=== PATIENT | female | born 1995 | race Caucasian/White ===

== ENCOUNTER → 2017-08-26 | Outpatient (CLI) | payer OTHER ==
[~2017-08-26] MED LIST: Flomax0.4 MG PO; IBUP800 PO; Percocet 5-3251 EACH PO; Zofran8 MG PO
[2017-08-27 11:51] LABS: Source CERVICAL
== END ==
LOC: LAB 16:30
PROVIDERS: Registered Nurse Community Health
DX: Z12.4 Encounter for screening for malignant neoplasm of cervix (principal)
CPT/HCPCS: G0123

== ENCOUNTER → 2018-10-15 | Outpatient (CLI) | payer OTHER ==
[2018-10-15 09:34] LABS: Alanine Aminotransfer (ALT/SGP 10 U/L (12-78); Albumin, Blood 2.6 g/dL (3.4-5.0); Albumin/Globulin Ratio 0.6 (0.8-1.8); Alk Phos 116 U/L (40-126); Anion Gap 14 mmol/L (6-16); Aspartate Aminotrans (AST/SGOT 10 U/L (12-37); Bilirubin, Total 0.3 mg/dL (0.1-1.0); Blood Urea Nitrogen 4 mg/dL (8-24); Bun/Creatinine Ratio 9.1 (12.0-20.0); CO2, Blood 22 mmol/L (21-32); Calcium, Blood 8.3 mg/dL (8.5-10.1); Chloride, Blood 101 mmol/L (98-108); Creatinine, Blood 0.44 mg/dL (0.40-1.00); Globulin, Blood 4.7 g/dL (2.2-4.0); Glomerular Filtration Rate >60 (60-); Glucose, Blood 92 mg/dL (70-99); Potassium, Blood 3.9 mmol/L (3.5-5.5); Sodium, Blood 137 mmol/L (136-145); Total Protein, Blood 7.3 g/dL (6.4-8.2)
== END | disposition home or self-care (01) ==
LOC: LAB SHORT 09:16 → LAB EV 09:16
PROVIDERS: Physician Assistant
DX: R10.9 Unspecified abdominal pain (principal)
CPT/HCPCS: 80053

== ENCOUNTER → 2018-12-01 | Outpatient (CLI) | payer OTHER | LOC: LAB SHORT 11:30 → LAB 11:30 | DX: Z34.93 Encounter for supervision of normal pregnancy, unspecified, third trimester (principal) | CPT/HCPCS: 87081; 87653 ==

== ENCOUNTER 2018-12-22 05:47 | Inpatient (IN) | payer OTHER ==
[~2018-12-22] VITALS: Ht 149.9 cm; Wt 0.1 kg
[2018-12-22] MEDS ORDERED: SERT50 PO (06:24)
[2018-12-22 06:36] LABS: BASOPHILS ABSOLUTE AUTO 0.03 K/mm3 (0.00-0.23); BASOPHILS PERCENT AUTO 0 % (0-2); EOSINOPHILS ABSOLUTE AUTO 0.03 K/mm3 (0.00-0.68); EOSINOPHILS PERCENT AUTO 0 % (0-6); Hematocrit 31.6 % (33.0-51.0); Hemoglobin 9.6 g/dL (11.5-16.0); IMMATURE GRAN ABSOLUTE AUTO 0.29 K/mm3 (0.00-0.10); IMMATURE GRAN PERCENT AUTO 2 % (0-1); LYMPHOCYTES ABSOLUTE AUTO 1.77 K/mm3 (0.84-5.20); LYMPHOCYTES PERCENT AUTO 10 % (21-46); MONOCYTES ABSOLUTE AUTO 1.08 K/mm3 (0.16-1.47); MONOCYTES PERCENT AUTO 6 % (4-13); Mean Corpuscular HGB 25.3 pg (26.0-34.0); Mean Corpuscular HGB Conc 30.4 g/dL (31.5-36.5); Mean Corpuscular Volume 83 fL (80-100); Mean Platelet Volume 9.9 fL (9.1-12.4); NEUTROPHILS ABSOLUTE AUTO 13.97 K/mm3 (1.96-9.15); NEUTROPHILS PERCENT AUTO 81 % (41-73); Platelet Count 284 K/mm3 (150-400); RDW Coefficient Variation 17.2 % (11.7-14.2); RDW Standard Deviation 50.9 fL (35.1-46.3); White Blood Cell Count 17.17 K/mm3 (4.00-11.30)
--- NOTE | 2018-12-22 10:59 | NUR ---
PERMISSION TO PROVIDE CARE PATIENT GAVE STUDENT PERMISSION TO PROVIDE CARE ON 12/22/2018.
[2018-12-23 05:58] LABS: BASOPHILS ABSOLUTE AUTO 0.03 K/mm3 (0.00-0.23); BASOPHILS PERCENT AUTO 0 % (0-2); EOSINOPHILS ABSOLUTE AUTO 0.11 K/mm3 (0.00-0.68); EOSINOPHILS PERCENT AUTO 1 % (0-6); Hematocrit 25.5 % (33.0-51.0); Hemoglobin 7.6 g/dL (11.5-16.0); IMMATURE GRAN ABSOLUTE AUTO 0.17 K/mm3 (0.00-0.10); IMMATURE GRAN PERCENT AUTO 1 % (0-1); LYMPHOCYTES ABSOLUTE AUTO 2.71 K/mm3 (0.84-5.20); LYMPHOCYTES PERCENT AUTO 16 % (21-46); MONOCYTES ABSOLUTE AUTO 1.47 K/mm3 (0.16-1.47); MONOCYTES PERCENT AUTO 8 % (4-13); Mean Corpuscular HGB 25.5 pg (26.0-34.0); Mean Corpuscular HGB Conc 29.8 g/dL (31.5-36.5); NEUTROPHILS ABSOLUTE AUTO 13.03 K/mm3 (1.96-9.15); NEUTROPHILS PERCENT AUTO 74 % (41-73); Platelet Count 253 K/mm3 (150-400); RDW Coefficient Variation 17.4 % (11.7-14.2); Red Blood Cell Count 2.98 M/mm3 (3.80-5.20); White Blood Cell Count 17.52 K/mm3 (4.00-11.30)
[2018-12-23 05:59] LABS: Mean Corpuscular Volume 86 fL (80-100)
[2018-12-23] MEDS ORDERED: Verotin-Gr Cap1 EACH PO (07:18)
[2018-12-23] MEDS ORDERED: IBUP600 PO (07:18)
--- NOTE | 2018-12-23 09:45 | NUR ---
D/C INSTRUCTIONS DISCUSSED AND SIGNED. PT ANXIOUS TO GO HOME TO [employer]PER[employer]INE OTHER CHILD. NO QUESTIONS OR CONCERNS. EXPERIENCED PARENTS RASHMI NB CARE WEL. OBSERVED BF. GOOD LATCH. WILL SEE STACIE IN [facility] TOMORROW FOR MORE BF ASSISTANCE. PT DOESN'T WANT TO WAIT TO SEE HER LATER TODAY. DISCUSSED PP DEPRESSION, PT PLANS TO CONTINUE [facility] AND WILL SEE Nadya BUSTOS CNM AROUND 2 WEEKS AND KNOWS TO CALL HER OFFICE OR [facility] IF NEEDS TO BE SEEN AT ANY TIME FOR PPDEPRESSION.
== END 2018-12-23 09:45 | disposition home or self-care (01) | DRG 807 ==
LOC: OBS 05:47 → BC 05:47 → OBS 06:13 → BC 06:14
PROVIDERS: ADMIT Registered Nurse Community Health
PROC: 10E0XZZ Delivery of Products of Conception, External Approach (ICD-10-PCS; principal; 2018-12-22)
PROC: 10907ZC Drainage of Amniotic Fluid, Therapeutic from Products of Conception, Via Natural or Artificial Opening (ICD-10-PCS; 2018-12-22)
PROC: 6A550ZT Pheresis of Cord Blood Stem Cells, Single (ICD-10-PCS; 2018-12-22)
DX: O70.0 First degree perineal laceration during delivery (principal); Z37.0 Single live birth; Z3A.39 39 weeks gestation of pregnancy; O90.81 Anemia of the puerperium
CPT/HCPCS: 36415; 85025; 85460; 96372; J1885; J2405; J2590; J2790; J3010; J7120

== ENCOUNTER 2023-09-22 17:48 | Emergency (ER) | payer OTHER ==
[~2023-09-22] VITALS: Ht 149.9 cm; Wt 61.2 kg
[~2023-09-22 17:48] MED LIST changes: +IBUP600 PO; +SERT50 PO; +Verotin-Gr Cap1 EACH PO
[2023-09-22 18:37] LABS: BASOPHILS ABSOLUTE AUTO 0.07 K/mm3 (0.00-0.23); BASOPHILS PERCENT AUTO 0 % (0-2); EOSINOPHILS ABSOLUTE AUTO 0.18 K/mm3 (0.00-0.68); EOSINOPHILS PERCENT AUTO 1 % (0-6); Hematocrit 40.5 % (33.0-51.0); Hemoglobin 13.9 g/dL (11.5-16.0); IMMATURE GRAN ABSOLUTE AUTO 0.07 K/mm3 (0.00-0.10); IMMATURE GRAN PERCENT AUTO 0 % (0-1); LYMPHOCYTES ABSOLUTE AUTO 3.75 K/mm3 (0.84-5.20); LYMPHOCYTES PERCENT AUTO 21 % (21-46); MONOCYTES ABSOLUTE AUTO 1.21 K/mm3 (0.16-1.47); MONOCYTES PERCENT AUTO 7 % (4-13); Mean Corpuscular HGB 29.7 pg (26.0-34.0); Mean Corpuscular HGB Conc 34.3 g/dL (31.5-36.5); Mean Corpuscular Volume 87 fL (80-100); Mean Platelet Volume 10.3 fL (9.1-12.4); NEUTROPHILS PERCENT AUTO 70 % (41-73); Platelet Count 393 K/mm3 (150-400); RDW Coefficient Variation 12.1 % (11.7-14.2); RDW Standard Deviation 38.4 fL (35.1-46.3); Red Blood Cell Count 4.68 M/mm3 (3.80-5.20); White Blood Cell Count 17.58 K/mm3 (4.00-11.30)
[2023-09-22 19:00] LABS: Albumin, Blood 4.1 g/dL (3.4-5.0); Albumin/Globulin Ratio 0.9 (0.8-1.8); Bilirubin, Total 0.4 mg/dL (0.1-1.0); Bun/Creatinine Ratio 19.7 (12.0-20.0); Calcium, Blood 9.4 mg/dL (8.5-10.1); Creatinine, Blood 0.56 mg/dL (0.40-1.00); Globulin, Blood 4.4 g/dL (2.2-4.0); Potassium, Blood 3.2 mmol/L (3.5-5.5); Total Protein, Blood 8.5 g/dL (6.4-8.2)
[2023-09-22 20:31] VITALS: BP 140/102
[2023-09-22] MEDS ORDERED: RIZATRIPTAN5 MG PO (20:45)
[2023-09-22] MEDS ORDERED: TOPI25 PO (20:46)
[2023-09-22] MEDS ORDERED: ESCI10 PO (20:46)
== END 2023-09-22 21:52 | disposition home or self-care (01) ==
LOC: ER 17:48
PROVIDERS: Student in an Organized Health Care Education/Training Program
DX: K62.5 Hemorrhage of anus and rectum (principal); K59.09 Other constipation; Z79.899 Other long term (current) drug therapy
CPT/HCPCS: 80053; 85025; 86850; 86900; 86901; 99283

== ENCOUNTER → 2025-07-07 | Outpatient (CLI) | payer OTHER ==
[~2025-07-07] MED LIST changes: +ESCI10 PO; +RIZATRIPTAN5 MG PO; +TOPI25 PO
== END ==
LOC: LAB SHORT 09:04 → LAB 09:04
DX: N39.0 Urinary tract infection, site not specified (principal)
CPT/HCPCS: 87086

== ENCOUNTER 2025-07-12 15:07 | Observation (INO) | payer OTHER ==
[~2025-07-12] VITALS: Ht 149.9 cm; Wt 56.9 kg
[2025-07-12] VITALS (9 sets, daily range): BP systolic 100–132; BP diastolic 64–94
[2025-07-12 16:02] LABS: Source, Urine Clean Catch
[2025-07-12 16:16] LABS: BASOPHILS ABSOLUTE AUTO 0.04 K/mm3 (0.00-0.23); BASOPHILS PERCENT AUTO 0 % (0-2); Bilirubin, Urine Neg (Neg); Color, Urine Yellow (P-Yellow); EOSINOPHILS ABSOLUTE AUTO 0.03 K/mm3 (0.00-0.68); EOSINOPHILS PERCENT AUTO 0 % (0-6); Glucose Qualitative, Urine Neg (Neg); Hematocrit 38.1 % (33.0-51.0); Hemoglobin 12.8 g/dL (11.5-16.0); IMMATURE GRAN ABSOLUTE AUTO 0.07 K/mm3 (0.00-0.10); IMMATURE GRAN PERCENT AUTO 0 % (0-1); Ketones, Urine 4+ (Neg); LYMPHOCYTES ABSOLUTE AUTO 1.16 K/mm3 (0.84-5.20); LYMPHOCYTES PERCENT AUTO 7 % (21-46); Leukocyte Esterase, Urine 2+ (Neg); MONOCYTES ABSOLUTE AUTO 0.62 K/mm3 (0.16-1.47); MONOCYTES PERCENT AUTO 4 % (4-13); Mean Corpuscular HGB Conc 33.6 g/dL (31.5-36.5); Mean Corpuscular Volume 88 fL (80-100); NEUTROPHILS ABSOLUTE AUTO 13.67 K/mm3 (1.96-9.15); NEUTROPHILS PERCENT AUTO 88 % (41-73); NRBC ABSOLUTE 0.00 K/mm3 (0.00-0.02); NRBC Auto 0.0 /100 WBC (0.0-0.2); Platelet Count 285 K/mm3 (150-400); Protein, Urine 2+ (Neg); RDW Coefficient Variation 11.9 % (11.7-14.2); RDW Standard Deviation 38.0 fL (35.1-46.3); Specific Gravity, Urine 1.025 (1.003-1.022); Urobilinogen, Urine NORM (Normal)
[2025-07-12] MEDS ORDERED: Morphine Sulfate 4 MG/1 ML Injection IV ONE ×2 (16:25→18:35)
[2025-07-12] MEDS ORDERED: NS 1,000 ML IV SCH (16:25)
[2025-07-12] MEDS ORDERED: CEFDINIR300 M4 PO (16:39)
[2025-07-12] MEDS ORDERED: TAMSULOSIN HCL0.4 M1 PO (16:39)
[2025-07-12] MEDS ORDERED: Ondansetron HCl 2 MG / ML 2ML Vial IV ONE ×2 (16:40→17:45)
[2025-07-12] MEDS ORDERED: ONDA4 PO (16:40)
[2025-07-12 16:41] LABS: Alanine Aminotransfer (ALT/SGP 16.0 U/L (12-78); Albumin, Blood 4.1 g/dL (3.4-5.0); Albumin/Globulin Ratio 1.0 (0.8-1.8); Anion Gap 10.0 mmol/L (3-11); Aspartate Aminotrans (AST/SGOT 11.0 U/L (12-37); Bilirubin, Total 0.5 mg/dL (0.1-1.0); Blood Urea Nitrogen 10.0 mg/dL (8-24); CO2, Blood 24.0 mmol/L (21-32); Calcium, Blood 8.7 mg/dL (8.5-10.1); Chloride, Blood 101.0 mmol/L (98-108); Creatinine, Blood 0.74 mg/dL (0.40-1.00); Globulin, Blood 4.2 g/dL (2.2-4.0); Glucose, Blood 94.0 mg/dL (70-99); Potassium, Blood 3.7 mmol/L (3.5-5.5); Sodium, Blood 131.0 mmol/L (136-145); Total Protein, Blood 8.3 g/dL (6.4-8.2)
[2025-07-12] MEDS ORDERED: FentaNYL Citrate 50 MCG/ML 2 ML Injection ONE (19:50)
[2025-07-12] MEDS ORDERED: Ondansetron HCl 2 MG / ML 2ML Vial ONE (20:02)
[2025-07-12] MEDS ORDERED: Dexamethasone Sod Phos 10 MG/ML 1ML VIAL ONE (20:02)
[2025-07-12] MEDS ORDERED: CefTRIAXone Sodium 1,000 MG in NS 100 ML IV ONE (20:15)
[2025-07-12] MEDS ORDERED: CefTRIAXone 1000 MG Vial ONE (20:18)
[2025-07-12] MEDS ORDERED: FentaNYL Citrate 50 MCG/ML 2 ML Injection IV PRN ×2 (20:25→20:30)
[2025-07-12] MEDS ORDERED: Ondansetron HCl 2 MG / ML 2ML Vial IV PRN ×2 (20:30→20:55)
[2025-07-12] MEDS ORDERED: Albuterol 2.5 MG/3 ML VIAL INH PRN (20:30)
[2025-07-12] MEDS ORDERED: FLU VACC TS2025-26(6MOS UP)/PF 45 MCG/0.5 ML SYRINGE IM SCH (20:50)
[2025-07-12] MEDS ORDERED: HYDROcodone 5-APAP 325 TAB PO PRN (20:50)
[2025-07-12] MEDS ORDERED: Morphine Sulfate 4 MG/1 ML Injection IV PRN (20:55)
[2025-07-12] MEDS ORDERED: Naloxone HCl 0.4MG / ML 1ML Vial IV PRN (20:55)
[2025-07-12] MEDS ORDERED: HYDROmorphone HCl/Pf 1MG SYR IV PRN (21:10)
[2025-07-12] MEDS ORDERED: Ketorolac Tromethamine 15mg Vial IV PRN (21:20)
[2025-07-12] MEDS ORDERED: LEVSOD25 PO (22:29)
[2025-07-13 04:13] VITALS: BP 115/82
[2025-07-13 05:49] LABS: BASOPHILS ABSOLUTE AUTO 0.02 K/mm3 (0.00-0.23); BASOPHILS PERCENT AUTO 0 % (0-2); EOSINOPHILS ABSOLUTE AUTO 0.00 K/mm3 (0.00-0.68); EOSINOPHILS PERCENT AUTO 0 % (0-6); Hematocrit 37.0 % (33.0-51.0); Hemoglobin 12.6 g/dL (11.5-16.0); IMMATURE GRAN ABSOLUTE AUTO 0.07 K/mm3 (0.00-0.10); IMMATURE GRAN PERCENT AUTO 0 % (0-1); LYMPHOCYTES ABSOLUTE AUTO 0.64 K/mm3 (0.84-5.20); LYMPHOCYTES PERCENT AUTO 4 % (21-46); MONOCYTES ABSOLUTE AUTO 0.29 K/mm3 (0.16-1.47); MONOCYTES PERCENT AUTO 2 % (4-13); Mean Corpuscular HGB Conc 34.1 g/dL (31.5-36.5); Mean Corpuscular Volume 89 fL (80-100); NEUTROPHILS ABSOLUTE AUTO 15.79 K/mm3 (1.96-9.15); NEUTROPHILS PERCENT AUTO 94 % (41-73); NRBC ABSOLUTE 0.00 K/mm3 (0.00-0.02); NRBC Auto 0.0 /100 WBC (0.0-0.2); Platelet Count 276 K/mm3 (150-400); RDW Coefficient Variation 11.9 % (11.7-14.2); RDW Standard Deviation 38.8 fL (35.1-46.3)
[2025-07-13 06:34] LABS: Anion Gap 9.0 mmol/L (3-11); Blood Urea Nitrogen 9.0 mg/dL (8-24); CO2, Blood 23.0 mmol/L (21-32); Calcium, Blood 8.7 mg/dL (8.5-10.1); Chloride, Blood 108.0 mmol/L (98-108); Creatinine, Blood 0.68 mg/dL (0.40-1.00); Glucose, Blood 148.0 mg/dL (70-99); Potassium, Blood 4.5 mmol/L (3.5-5.5); Sodium, Blood 135.0 mmol/L (136-145)
--- NOTE | 2025-07-13 06:36 | NUR ---
Shift Summary Pt admitted from PACU for infected kidney stone. A stent was placed, accessed through urethra so there is no incision. Pt having painful urination with some blood in the urine. In the ED yesterday PT had severe R flank pain but she is having no R flank pain after the procedure. She is having menstral cramps, I medicated once with IV Toradol as ordered. Pt is AOx4, independent in the room. She does have a congested sinus which she says has been going on for a few days. She states no sore throat. Pt also diagnosed with UTI and is rcving IV ABX.
[2025-07-13 16:13] VITALS: BP 123/84
--- NOTE | 2025-07-13 18:21 | NUR ---
END OF SHIFT NOTE PATIENT RESTING IN BED, IND IN ROOM AND TO BATHROOM. A&O4, ABLE TO MAKE NEEDS KNOWN. IV INFUSING TO ORDER. TORADOL USED FOR PAIN MANAGEMENT TODAY, PLAN TO D/C TOMORROW. PATIENT SHOWERED TODAY, AND HAD FAMILY IN FOR VISITING THROUGHOUT THE DAY. PATIENT PLEASANT AND AGREEABLE TO CARE. NO OTHER CONCERNS FOR THIS SHIFT.
[2025-07-13 19:36] VITALS: BP 122/83
[2025-07-13] MEDS ORDERED: CefTRIAXone Sodium 1,000 MG in NS 100 ML IV SCH (21:00)
[2025-07-13 23:47] VITALS: BP 107/73
--- NOTE | 2025-07-14 03:29 | NUR ---
INVESTMENT COUNSELOR SUMMARY VSS. A/O X 4. COOPERATIVE WITH CARE. AFFECT CHEERFUL WHEN CONVERSING WITH STAFF. IVF OF NS WITH K+ INFUSING AND ANTIBIOTICS ADMIN PER MD ORDERS - SEE MAR FOR DETAILS. UP AD MAT. HAS BEEN RESTING QUIETLY WITH FEW INTERRUPTIONS. ABLE TO REPOSITOIN SELF IN BED WITHOUT ASSIST. NO C/O PAIN OF THIS WRITING. CALL LIGHT IN REACH, RAILS UP X 2 AND BED IN LOW POSITION FOR SAFETY. WILL CONTINUE TO MONITOR.
[2025-07-14 04:33] VITALS: BP 117/84
[2025-07-14 07:36] VITALS: BP 129/96
[2025-07-14 08:34] LABS: BASOPHILS ABSOLUTE AUTO 0.02 K/mm3 (0.00-0.23); BASOPHILS PERCENT AUTO 0 % (0-2); EOSINOPHILS ABSOLUTE AUTO 0.11 K/mm3 (0.00-0.68); EOSINOPHILS PERCENT AUTO 1 % (0-6); Hematocrit 31.2 % (33.0-51.0); Hemoglobin 10.1 g/dL (11.5-16.0); IMMATURE GRAN ABSOLUTE AUTO 0.03 K/mm3 (0.00-0.10); IMMATURE GRAN PERCENT AUTO 0 % (0-1); LYMPHOCYTES ABSOLUTE AUTO 1.36 K/mm3 (0.84-5.20); LYMPHOCYTES PERCENT AUTO 17 % (21-46); MONOCYTES ABSOLUTE AUTO 0.80 K/mm3 (0.16-1.47); MONOCYTES PERCENT AUTO 10 % (4-13); Mean Corpuscular HGB Conc 32.4 g/dL (31.5-36.5); Mean Corpuscular Volume 90 fL (80-100); NEUTROPHILS ABSOLUTE AUTO 5.79 K/mm3 (1.96-9.15); NEUTROPHILS PERCENT AUTO 71 % (41-73); NRBC ABSOLUTE 0.00 K/mm3 (0.00-0.02); NRBC Auto 0.0 /100 WBC (0.0-0.2); Platelet Count 210 K/mm3 (150-400); RDW Coefficient Variation 12.5 % (11.7-14.2); RDW Standard Deviation 41.1 fL (35.1-46.3)
[2025-07-14] MEDS ORDERED: CEPH500 PO (10:18)
[2025-07-14] MEDS ORDERED: PHENA200 PO (10:18)
[2025-07-14] MEDS ORDERED: Acetaminophen325 M1 PO (10:18)
[2025-07-14] MEDS ORDERED: OXYB5 PO (10:18)
--- NOTE | 2025-07-14 10:38 | NUR ---
PATIENT D/C'D TO HOME WITH FAMILY. DC INSTRUCTIONS AND EDUCATION DISCUSSED WITH PATIENT AND COPY PROVIDED. RX MEDICATIONS FAXED TO [facility]. PATIENT DENIES ANY FURTHER QUESTIONS OR CONCERNS. PATIENT TO FOLLOW UP WITH [facility].
== END 2025-07-14 10:58 | disposition home or self-care (01) ==
LOC: ER 15:07 → MEDS 15:08 → ER 19:30 → MEDS 19:33 → ER 19:33 → MEDS 20:17 → ER 07-13 19:34 → MEDS 07-13 19:34
PROVIDERS: Emergency Medicine; ADMIT Urology
PROC: 0WHR8YZ Insertion of Other Device into Genitourinary Tract, Via Natural or Artificial Opening Endoscopic (ICD-10-PCS; principal; 2025-07-12 22:15)
DX: N13.6 Pyonephrosis (principal); N20.1 Calculus of ureter
CPT/HCPCS: 36415; 74176; 80048; 80053; 81001; 82947; 84703; 85025; 87086; 94762; 96374; 96375; 96376; 99285-25; A9270; C1758; C1769; C2617; G0378; J0696; J1100; J1885; J2405; J2704; J3010; J3480; J7030; J7120

== ENCOUNTER 2025-07-19 08:16 | Day surgery (SDC) | payer OTHER ==
[~2025-07-19] VITALS: Ht 149.9 cm; Wt 63.6 kg
[~2025-07-19 08:16] MED LIST changes: +Acetaminophen325 M1 PO; +CEFDINIR300 M4 PO; +CEPH500 PO; +LEVSOD25 PO; +Lidocaine 2% Jelly Uro-Jet ONE; +ONDA4 PO; +OXYB5 PO; +PHENA200 PO; +TAMSULOSIN HCL0.4 M1 PO
[2025-07-19] MEDS ORDERED: CeFAZolin Sodium 2,000 MG VIAL ONE (08:32)
[2025-07-19] MEDS ORDERED: Dexamethasone Sod Phos 10 MG/ML 1ML VIAL ONE (10:16)
[2025-07-19] MEDS ORDERED: FentaNYL Citrate 50 MCG/ML 2 ML Injection ONE (10:17)
[2025-07-19] MEDS ORDERED: Ondansetron HCl 2 MG / ML 2ML Vial ONE (10:26)
--- NOTE | 2025-07-19 12:29 | NUR ---
07/19/25 1229 Mayra Kim 1209 PT TRANSFERRED TO VIA WC WITH MINIMAL ASSIST,WAS ABLE TO VOID TOLERATED WELL, SCANT AMOUNT OF BLOOD IN URINE. 1215 RECHECKED BP IMPROVED MET ALL DISCHARGE CRITERIA.
[2025-07-19 12:33] VITALS: BP 132/92
[2025-07-24 15:09] LABS: CALCULI MASS 40 mg
== END 2025-07-19 12:35 | disposition home or self-care (01) ==
LOC: ORSCSDS 08:16 → ORD 09:30 → ORSCSDS 09:30
PROVIDERS: Urology
PROC: 0T768DZ Dilation of Right Ureter with Intraluminal Device, Via Natural or Artificial Opening Endoscopic (ICD-10-PCS; principal; 2025-07-19 09:30)
PROC: 0TC08ZZ Extirpation of Matter from Right Kidney, Via Natural or Artificial Opening Endoscopic (ICD-10-PCS; principal; 2025-07-19 09:30)
DX: N20.0 Calculus of kidney (principal); E06.3 Autoimmune thyroiditis; Z79.899 Other long term (current) drug therapy
CPT/HCPCS: 82365; C1769; C2617; J0690; J1100; J2405; J2704; J3010; J7120